=== PATIENT | male | born 1965 | race Two or more races ===

== ENCOUNTER 2020-02-26 10:54 | Emergency (ER) | payer SELFPAY ==
[~2020-02-26] VITALS: Ht 170.2 cm; Wt 70.3 kg
[2020-02-26 11:03] VITALS: BP 131/68
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
--- NOTE | 2020-02-26 11:46 | NUR ---
ED Nurse Note: Pt taken to CT via mary
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
[2020-02-26] MEDS ORDERED: ROBAXIN-750750 MG PO (13:00)
[2020-02-26] MEDS ORDERED: IBUPROFEN600 M1 ORAL (13:00)
[2020-02-26] MEDS ORDERED: LIDODERM700 M1 TOPIC (13:00)
[2020-02-26 13:15] VITALS: BP 129/65
--- NOTE | 2020-02-26 13:15 | NUR ---
ER DISCHARGE NOTE: Patient is cleared to be discharged per ERMD, pt is aox4, on room air, with stable vital signs. pt was given dc and prescription instructions, pt was able to verbalize understanding, pt id band removed. pt is able to ambulate with steady gait. pt took all belongings.
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
== END 2020-02-26 13:15 | disposition home or self-care (01) ==
LOC: EDBD 10:54 → EMR 12:50
DX: S16.1XXA Strain of muscle, fascia and tendon at neck level, initial encounter (principal); V69.50XA Passenger in heavy transport vehicle injured in collision with unspecified motor vehicles in traffic accident, initial encounter; Y92.410 Unspecified street and highway as the place of occurrence of the external cause
CPT/HCPCS: 72125; 99284